=== PATIENT | male | born 1980 | race African-American/Black ===

== ENCOUNTER 2018-07-09 02:09 | Emergency (ER) | payer MEDICAID ==
[~2018-07-09] VITALS: Ht 175.3 cm; Wt 81.6 kg
--- NOTE | 2018-07-09 02:15 | NUR ---
Pt BIBRA complaining of L knee pain x 1hr. 03/13 non-radiating pain. Pt states he was laying down and it started to hurt. Pt denies any trauma. Pt [id number]. Respirations even and unlabored. Pt put on the monitor and pending eval from ER .
--- NOTE | 2018-07-09 02:16 | NUR ---
[facility] RM AT BEDSIDE FOR EVAL.
[2018-07-09] MEDS ORDERED: ONDANSETRON 4 MG TAB.RAPDIS ONE (02:21)
[2018-07-09] MEDS ORDERED: oxyCODONE/APAP (5/325 MG) 1 UDTAB TABLET ONE ×2 (02:21→03:46)
--- NOTE | 2018-07-09 02:25 | NUR ---
XRAY AT BEDSIDE.
[2018-07-09] MEDS ORDERED: ONDANSETRON 4 MG TAB.RAPDIS SL ONE (02:30)
[2018-07-09] MEDS ORDERED: oxyCODONE/APAP (5/325 MG) 1 UDTAB TABLET PO ONE ×2 (02:30→04:00)
--- NOTE | 2018-07-09 03:30 | NUR ---
Pt resting comfortably in bed, NAD NOTED. Pt being monitored.
--- NOTE | 2018-07-09 03:33 | NUR ---
Pt intermittently yelling and screaming about L leg pain. ER MD Notified.
--- NOTE | 2018-07-09 03:44 | NUR ---
[employer]ician at beside.
--- NOTE | 2018-07-09 04:25 | NUR ---
Patient discharged to home in stable condition. Written and verbal after care instructions given. Patient verbalizes understanding of instruction. NAD NOTED. Pt refused [facility] and refused to sign the homeless waiver form.
[2018-07-09 04:26] VITALS: BP 127/78
== END 2018-07-09 04:28 | disposition home or self-care (01) ==
LOC: ER 02:11
DX: M25.562 Pain in left knee (principal); F10.10 Alcohol abuse, uncomplicated; F17.200 Nicotine dependence, unspecified, uncomplicated; Y90.9 Presence of alcohol in blood, level not specified; Z59.0 Homelessness
CPT/HCPCS: 29505; 73564; 93971; 99284; A4606; Q0162

== ENCOUNTER 2023-11-30 18:57 | Emergency (ER) | payer MEDICAID, OTHER ==
[~2023-11-30] VITALS: Ht 170.2 cm; Wt 78.0 kg
[2023-11-30 19:48] VITALS: BP 135/99; TEMP 98.6; O2SAT 98
== END 2023-11-30 19:49 ==
LOC: ER 19:09
DX: R45.851 Suicidal ideations (principal); F17.200 Nicotine dependence, unspecified, uncomplicated; Z59.00 Homelessness unspecified